=== PATIENT | male | born 1995 | race Caucasian/White ===

== ENCOUNTER 2018-10-22 16:53 | Emergency (ER) | payer MEDICAID ==
[~2018-10-22] VITALS: Ht 180.3 cm; Wt 85.0 kg
[~2018-10-22 16:53] MED LIST: ALBU18HF2 IH
[2018-10-22] MEDS ORDERED: ondansetron 4mg rapidly disintigrating tab PO ONE (17:35)
[2018-10-22] MEDS ORDERED: ketorolac tromethamine 15mg/ml inj. IM ONE (17:35)
[2018-10-22] MEDS ORDERED: LIDOcaine 5% patch TP STA (17:37)
[2018-10-22] MEDS ORDERED: ASPI-778 PO (19:28)
[2018-10-22] MEDS ORDERED: ONDA4TAB6 PO (19:28)
[2018-10-22 19:33] VITALS: BP 131/71
== END 2018-10-22 19:35 | disposition home or self-care (01) ==
LOC: ER 16:54
DX: G44.209 Tension-type headache, unspecified, not intractable (principal); M54.2 Cervicalgia; J45.909 Unspecified asthma, uncomplicated; M25.519 Pain in unspecified shoulder; Z79.899 Other long term (current) drug therapy
CPT/HCPCS: 96372; 99283; J1885